=== PATIENT | male | born 1990 | race Caucasian/White ===

== ENCOUNTER 2023-06-30 10:48 | Outpatient (REF) | payer MEDICAID, SELFPAY ==
[2023-06-30 13:15] LABS: MANUAL DIFF FLAG NO
[2023-06-30 13:26] LABS: Basophils Absolute Auto 0.1 X10*3/uL (0.0-0.2); Basophils Percent Auto 1.2 % (0-2); Eosinophils Absolute Auto 0.3 X10*3/uL (0.0-0.4); Eosinophils Percent Auto 4.7 % (0-4); Hematocrit 42.8 % (42.0-52.0); Imm Gran Abs Auto 0.01 X10*3/uL (0.00-0.03); Imm Gran Pct Auto 0.1 % (0.0-0.4); Lymphocytes Absolute Auto 3.3 X10*3/uL (1.2-4.9); Lymphocytes Percent Auto 45.8 % (20-40); Mean Corpuscular HGB Conc 32.7 g/dl (31.0-36.0); Mean Corpuscular Hemoglobin 30.2 pg (27.0-33.0); Mean Corpuscular Volume 92.2 fL (80.0-98.0); Mean Platelet Volume 10.3 fL (9.4-12.4); Monocytes Absolute Auto 0.4 X10*3/uL (0.1-1.2); Monocytes Percent Auto 4.8 % (2-11); Neutrophils Absolute Auto 3.1 x10*3/uL (2.0-8.3); Neutrophils Percent Auto 43.4 % (45-73); Platelet Count 264 X10*3/uL (160-400); Red Blood Count 4.64 X10*6/uL (4.60-5.80); Red Cell Distribution Width 12.7 % (11.0-16.0); White Blood Count 7.2 X10*3/uL (4.8-10.8)
[2023-06-30 13:45] LABS: Alanine Aminotransferase 58 U/L (0-40); Albumin Level 4.2 g/dL (3.5-5.0); Alkaline Phosphatase 69 U/L (39-117); Anion Gap 13 (12-20); Aspartate Amino Transferase 39 U/L (5-37); Bilirubin Direct 0.1 mg/dL (0.0-0.5); Bilirubin Total 0.3 mg/dL (0.0-1.0); Blood Urea Nitrogen 9 mg/dL (9-16); Calcium 9.8 mg/dL (8.4-10.2); Carbon Dioxide 26 mmol/L (22-29); Chloride 105 mmol/L (96-108); Cholesterol 161 mg/dL (<200); Estimated Glomerular Filt Rate > 60; Glucose Random 109 mg/dL (60-115); HDL Cholesterol 31 mg/dL (>40); LDL Cholesterol Calculated 89 mg/dL (<100); Potassium 5.1 mmol/L (3.3-5.1); Sodium 139 mmol/L (135-145); Total Protein 7.7 g/dL (6.5-8.0); Triglycerides 209 mg/dL (<150)
[2023-06-30 14:07] LABS: Free T4 (Free Thyroxine) 0.92 ng/dL (0.71-1.85); Thyroid Stimulating Hormone 0.54 uIU/mL (0.32-4.0); Vitamin D 25-OH Total 57.7 ng/mL (>30)
[2023-06-30 14:10] LABS: Estimated Average Glucose 117 mg/dL; Hemoglobin A1c % 5.7 % (<6.0)
[2023-06-30 14:30] LABS: Syphilis Screen Nonreactive (Nonreactive)
[2023-07-01 07:33] LABS: HBS Num1 41.09 mIU/mL (0-7.99); HBsAGNum1 0.35 S/CO (0.00-0.99); HIV AB/AG Nonreactive (Nonreactive); HIV Num 1 0.05 S/CO (0.00-0.99); Hepatitis B Surface Antigen Negative (Negative); ~HepC Num1 0.07 S/CO (0.00-0.79); ~Hepatitis B Surface Antibody REACTIVE (Nonreactive); ~Hepatitis C Antibody Nonreactive (Nonreactive)
== END 2023-06-30 10:49 | disposition home or self-care (01) ==
LOC: HO.HHCL 10:48
PROVIDERS: Visit Provider Family Medicine
DX: Z00.00 Encounter for general adult medical examination without abnormal findings (principal); Z11.4 Encounter for screening for human immunodeficiency virus [HIV]
CPT/HCPCS: 80048; 80061; 80076; 82306; 83036; 84439; 84443; 85025; 86706; 86780; 86803; 87340; 87389

== ENCOUNTER 2023-10-01 10:10 | Outpatient (AMB) | payer MEDICAID, SELFPAY ==
--- NOTE | 2023-10-01 10:15 | A.OFFVIS_ITS ---
Intake Vital Signs 10/01/23 10:21 Height 5 ft 8 in Weight 315 lb 4.176 oz BMI 47.9 BP 120/80 Blood Pressure Location Lt brachial Position Sitting Pulse 76 Intake Visit Reasons: [employer]/Dr. Yu/Pulmonic stenosis Intake Note: New patient pulmonic stenosis hx heart murmur Make Up Operator Required: No Allergies No Known Drug Intolerances [NO KNOWN DRUG INTOLERANCES] Allergy (Unknown, Unverified 06/01/20 15:54) none Medication List - Last Reconciled 10/01/23 by Arden Lynch MD No Known Home Meds HPI HPI Comments History of Present Illness Details Thank you for referring [facility] in cardiology consultation today for management of congenital pulmonic stenosis. He had echocardiogram about 10 years ago which showed mild pulmonic stenosis with peak gradient of 25 mmHg. He said he has had a murmur since he was a child but did not know much about it. He said he got from his mother. He has no cardiovascular symptoms. Does not exercise much and is currently starting to get an exercise program. However he says with day-to-day activity and exertional activity has no chest pain or shortness of breath. He has no limitations. Denies any prolonged palpitation irregular heartbeat. No other cardiac symptoms. [facility] Medical History Pulmonic stenosis Family History Father No problems noted. Mother Murmur, cardiac Review of Systems Const Denies chills, Denies daytime sleepiness, Denies fatigue, Denies fever(s), Denies frequent falls, Denies poor appetite, Denies snoring, Denies stops breathing during sleep, Denies weakness, Denies weight gain and Denies weight loss Eyes Denies loss of vision ENT Denies dizziness and Denies hearing loss Card Denies chest pain, Denies claudication, Denies leg edema, Denies lightheadedness, Denies palpitations, Denies dyspnea, Denies dyspnea on exertion and Denies orthopnea Resp Denies cough, Denies excessive phlegm production, Denies dyspnea, Denies dyspnea on exertion, Denies snoring and Denies wheezing GI Denies abdominal pain, Denies hematochezia, Denies change in bowel habits, Denies nausea and Denies vomiting Denies dysuria and Denies urinary frequency Musc Denies arthralgias, Denies muscle weakness, Denies numbness and Denies other (frequent falls) Skin/Breast Denies nail changes and Denies rash Neuro Denies Abnormal speech present, Denies dizziness, Denies frequent falls, Denies loss of vision, Denies memory loss, Denies numbness and Denies weakness Psych Denies depression and Denies memory loss Endo Denies fatigue and Denies palpitations Ousmane/Lymph Reports easy bruising and Reports other (anemia) Aller/Immun Denies wheezing Physical Exam Vital Signs: Last Vital Signs Pulse 76 10/01/23 10:21 BP 120/80 10/01/23 10:21 BMI result Body Mass Index 47.9 Const General: cooperative, comfortable, no acute distress, well developed, alert and awake Nutritional Appearance: well nourished and obese morbidly obese Orientation/consciousness: patient oriented x3 Limitations: no limitations HEENT Head: Yes normocephalic and Yes atraumatic Neck Neck: Yes trachea midline, Yes supple and Yes no JVD Resp Effort & Inspection: normal respiratory effort Auscultation: clear to auscultation bilaterally Cardio Jugular venous distension: no JVD Palpation: normal PMI Rate: regular rate Rhythm: regular rhythm Heart sounds: S1 normal heart sound present, S2 normal heart sound present, no click, no gallops and Murmur heart sound present systolic early, decrescendo, crescendo and at the left sternal border Peripheral pulses: Peripheral pulses 2+ throughout GI Auscultation: normal bowel sounds Skin General skin exam: no rashes or lesions noted Neuro General: patient oriented x3 and no focal motor deficits Speech: No Abnormal speech present Extrem General: Yes no clubbing, cyanosis or edema Office Procedures EKG Details: EKG shows normal sinus rhythm with left posterior fascicular block 40158-[id number], Complete Assessment & Plan Assessment & Plan (1) Pulmonic stenosis: Code(s): I37.0 - Nonrheumatic pulmonary valve stenosis Plan: Pulmonic stenosis of mild severity. Discussed with him about pathophysiology of congenital pulmonic stenosis. He has no cardiac symptoms at current level does not require any intervention. Will repeat echocardiogram to assess for RV size and for RVH as well as pulmonic stenosis severity. There is no medications required. Has no interventions required as well. This was discussed with him. He understands agrees. He is encouraged to participate in heart healthy lifestyle with more aggressive weight loss program as well as increase exercise including aerobic exercise. He understands agrees. Follow up in the clinic in 2 years time, sooner p.r.n.. Thank you for allowing me to partake in his care Coding Level of Care Code New Pt Level 3 (86782) Diagnoses Pulmonic stenosis I37.0 CPT Codes EKG - CPT: 32266-[id number], Complete ([id number])
[2023-10-01 10:21] VITALS: BP 120/80; PULSE 76; BMI 47.9
== END 2023-10-01 10:42 | disposition home or self-care (01) ==
PROVIDERS: PCP Family Medicine; Referring Provider Family Medicine; Visit Provider Internal Medicine Cardiovascular Disease
DX: I37.0 Nonrheumatic pulmonary valve stenosis (principal)
CPT/HCPCS: 93010; 99203

== ENCOUNTER → 2023-10-01 10:10 | Outpatient (BNVA) | payer MEDICAID, SELFPAY | PROVIDERS: PCP Family Medicine; Visit Provider Internal Medicine Cardiovascular Disease | DX: I37.0 Nonrheumatic pulmonary valve stenosis (principal) | CPT/HCPCS: 93005; 99202 ==

== ENCOUNTER 2024-11-08 15:18 | Outpatient (REF) | payer MEDICAID, SELFPAY ==
[2024-11-08 16:15] LABS: Hematocrit 41.7 % (42.0-52.0); Hemoglobin 13.9 g/dl (14.0-18.0); Mean Corpuscular HGB Conc 33.3 g/dl (31.0-36.0); Mean Corpuscular Hemoglobin 29.1 pg (27.0-33.0); Mean Corpuscular Volume 87.4 fL (80.0-98.0); Mean Platelet Volume 9.4 fL (9.4-12.4); Platelet Count 243 X10*3/uL (160-400); Red Blood Count 4.77 X10*6/uL (4.60-5.80); Red Cell Distribution Width 12.3 % (11.0-16.0); White Blood Count 8.9 X10*3/uL (4.8-10.8)
[2024-11-08 16:23] LABS: Estimated Average Glucose 114 mg/dL; Hemoglobin A1C 135.7196 umol/L; Hemoglobin A1c % 5.6 % (<6.0); Total Hemoglobin (HGBA1C) 3625.8279 umol/L
[2024-11-08 17:14] LABS: Alanine Aminotransferase 26 U/L (0-40); Anion Gap 10 (12-20); Aspartate Amino Transferase 37 U/L (5-37); Bilirubin Direct 0.1 mg/dL (0.0-0.5); Bilirubin Total 0.3 mg/dL (0.0-1.0); Blood Urea Nitrogen 15 mg/dL (9-16); Calcium 9.1 mg/dL (8.4-10.2); Carbon Dioxide 27 mmol/L (22-29); Chloride 107 mmol/L (96-108); Cholesterol 144 mg/dL (<200); Estimated Glomerular Filt Rate > 60; Glucose Random 95 mg/dL (60-115); HDL Cholesterol 33 mg/dL (>40); LDL Cholesterol Calculated 75 mg/dL (<100); Potassium 3.9 mmol/L (3.3-5.1); Sodium 140 mmol/L (135-145); Total Protein 7.8 g/dL (6.5-8.0); Triglycerides 183 mg/dL (<150)
[2024-11-08 17:25] LABS: Alanine Aminotransferase 26 U/L (0-40); Aspartate Amino Transferase 25 U/L (5-37); Bilirubin Direct 0.1 mg/dL (0.0-0.5); Bilirubin Total 0.4 mg/dL (0.0-1.0); Total Protein 7.9 g/dL (6.5-8.0)
[2024-11-08 17:32] LABS: Thyroid Stimulating Hormone 0.87 uIU/mL (0.32-4.0)
[2024-11-08 17:56] LABS: Alkaline Phosphatase 74 U/L (39-117)
[2024-11-08 17:58] LABS: Alkaline Phosphatase 75 U/L (39-117)
[2024-11-09 08:16] LABS: Hepatitis A Antibody IgG REACTIVE (Nonreactive); ~Hepatitis A Antibody IgG 9.39 S/CO (0.00-0.99)
[2024-11-09 08:28] LABS: HBS Num1 75.38 mIU/mL (0-7.99); HBc Num1 0.11 S/CO (0.00-0.79); HIV AB/AG Nonreactive (Nonreactive); HIV Num 1 0.07 S/CO (0.00-0.99); Hepatitis B Core Antibody Nonreactive (Nonreactive); Hepatitis B Surface Antigen Negative (Negative); ~HepC Num1 0.11 S/CO (0.00-0.79); ~Hepatitis B Surface Antibody REACTIVE (Nonreactive); ~Hepatitis C Antibody Nonreactive (Nonreactive)
[2024-11-09 08:30] LABS: HBS Num1 70.98 mIU/mL (0-7.99); HBc Num1 0.19 S/CO (0.00-0.79); HBsAGNum1 0.31 S/CO (0.00-0.99); HIV AB/AG Nonreactive (Nonreactive); HIV Num 1 0.05 S/CO (0.00-0.99); Hepatitis B Core Antibody Nonreactive (Nonreactive); Hepatitis B Surface Antigen Negative (Negative); ~HepC Num1 0.12 S/CO (0.00-0.79); ~Hepatitis B Surface Antibody REACTIVE (Nonreactive); ~Hepatitis C Antibody Nonreactive (Nonreactive)
[2024-11-09 08:37] LABS: Hepatitis A Antibody IgG REACTIVE (Nonreactive); ~Hepatitis A Antibody IgG 10.45 S/CO (0.00-0.99)
[2024-11-09 11:54] LABS: CT PCR NOT DETECTED (Not Detect.); NG PCR NOT DETECTED (Not Detect.)
[2024-11-10 09:58] LABS: RPR Rapid Plasma Reagin NON-REACTIVE (NON-REACTIVE)
[2024-11-11 12:54] LABS: TS Negative Control Passed; TS Panel A 1; TS Panel B 0; TS Positive Control Passed; TSpotTB Negative (Negative)
== END 2024-11-08 15:19 | disposition home or self-care (01) ==
LOC: HO.HHCL 15:18
PROVIDERS: Emergency Medicine; Visit Provider Family Medicine
DX: Z00.00 Encounter for general adult medical examination without abnormal findings (principal); F11.20 Opioid dependence, uncomplicated; Q22.1 Congenital pulmonary valve stenosis; E78.1 Pure hyperglyceridemia; R79.89 Other specified abnormal findings of blood chemistry; L83 Acanthosis nigricans; Z68.41 Body mass index [BMI] 40.0-44.9, adult
CPT/HCPCS: 36415; 80048; 80061; 80076; 82306; 83036; 84439; 84443; 85027; 86481; 86592; 86704; 86706; 86708; 86803; 87340; 87389; 87491; 87591